=== PATIENT | female | born 1950 | race Caucasian/White ===

== ENCOUNTER → 2019-01-03 | Outpatient (CLI) | payer MEDICARE, OTHER ==
[~2019-01-03] MED LIST: ALPR-429 PO; BRIM5DRO8 OP; BUTA1CAP5 PO; DICL-190 PO; IBUP400T13 PO; LEVO-3 PO; LEVO-315 PO; LEVO88TA43 PO; NAPR220C12 PO; TRAZ50TA34 PO; VENL37.514 PO; ZOLP-350 PO; ZOLP-360 PO
--- NOTE | 2019-01-04 08:28 | RADIOLOGY IMAGING REPORT ---
FACILITY: [facility] PATIENT NAME: SOLE VELÁSQUEZ : [id number] MR: [id number] V: [id number] EXAM DATE: [id number] ORDERING PHYSICIAN: MAYDA PIZARRO TECHNOLOGIST: Kristin Marcial PROCEDURE:BILATERAL DIGITAL SCREENING MAMMOGRAM WITH CAD ASSISTED INTERPRETATION & 3D TOMOSYNTHESIS COMPARISON:Prior mammograms 08/11/17, 07/22/16, 07/15/15, 07/11/14, 06/29/13, 06/24/12. INDICATIONS:screening FINDINGS: The breasts are heterogeneously dense which can obscure small masses. The parenchymal pattern has remained stable allowing for difference in mammographic technique & patient positioning. There is an area of postsurgical scaring in the upper outer quadrant of the Right breast from prior lumpectomy. DIAGNOSTIC CATEGORY 2--BENIGN FINDING. RECOMMENDATIONS: ROUTINE MAMMOGRAM AND CLINICAL EVALUATION. IMPRESSION: BIRADS 2: Benign finding. No significant abnormality is seen. Dictated by: Lisa Peacock M.D. on 01/03/2019 at 16:31 Transcribed by: MICHAEL on 01/04/2019 at 8:19 Approved by: Lisa Peacock M.D. on 01/04/2019 at 8:27 [facility]
== END ==
LOC: MAMO 01:19
PROVIDERS: ATTEND Internal Medicine
DX: Z12.31 Encounter for screening mammogram for malignant neoplasm of breast (principal)
CPT/HCPCS: 77063; 77067

== ENCOUNTER → 2019-03-15 | Outpatient (CLI) | payer MEDICARE, OTHER ==
[~2019-03-15] MED LIST changes: +LEVO88TA45 PO; +MIRT-22 PO; +PNEU0.5D3 IM; -TRAZ50TA34 PO; +TRAZ50TA52 PO
--- NOTE | 2019-03-15 14:52 | RADIOLOGY IMAGING REPORT ---
FACILITY: [facility] PATIENT NAME: Payam Dyson : 1950 MR: [id number] V: [id number] EXAM DATE: ORDERING PHYSICIAN: SIVAKUMAR SANDERSON TECHNOLOGIST: Location: [facility] Patient: Payam Dyson : 1950 Visit/Account:[id number] Date of Sevice: 03/15/2019 DEXA Scan Clinical history: Asymptomatic postmenopausal state. Comparison: DEXA scan from to 617. LUMBAR SPINE: The bone mineral density (BMD) measured from L1-L4 correlates with a Z-score of 0.7 and a T-score of -1.1 which is osteopenia as defined by the World Health Organization. The corresponding risk of frac ture in the lumbar spine is 2-3 times increased compared with a young adult reference population. Th is value has decrease by 5.1 % since the prior study. More than 5% change is considered significant. HIP: Bone mineral density (BMD) measured in the LEFT total hip region correlates with a Z-score -0.8 and a T-score of -2.2 which is osteopenia as defined by the World Health Organization. The corresponding risk of fracture in the hip is 4-6 times increased compared to a young adult reference population. Th is value has increase by 2.1 % since the prior study. More than 5% change is considered significant. T score left femoral neck -2.3 Bone mineral density (BMD) measured in the Femoral Neck region measures 0.717 g/cm?. IMPRESSION: 1. Lumbar spine: Osteopenia. There has been 5.1% decrease in the bone mineral density since the pre vious exam. 2. Left Total Hip: Osteopenia. There has been 2.1% increase in the bone mineral density since the p revious exam. 3. Femoral Neck: Bone Mineral Density is 0.717 g/cm? The next DEXA scan of this patient should include the following sites: L1-L4 and the left hip. FRAX? WHO Fracture Risk Assessment Tool link: <http://www.shef.ac.uk/FRAX/tool.jsp?locationValue=9> PLEASE NOTE: 1) The World Health Organization defines low BMD as follows: T-score Normal > -1 Osteopenia < -1 and > -2.5 Osteoporosis < -2.5 without fractures Established osteoporosis < -2.5 with fractures 2) In general, you may wish to consider: Diagnosis Treatment Follow-up DEXA Normal BMD Prevention 2-3 years Osteopenia Prevention/therapy 1-2 years Osteoporosis Therapy Yearly 3) Fracture risk estimated from the T-score is more accurate for vertebral fractures (often spontane ous) than for hip fractures. Report Dictated By: Lisa Peacock MD at 03/15/2019 2:44 PM Report E-Signed By: Lisa Peacock MD at 03/15/2019 2:45 PM WSN:[email or web address]
== END ==
LOC: RAD 00:09
PROVIDERS: ATTEND Nurse Practitioner Family
DX: M85.89 Other specified disorders of bone density and structure, multiple sites (principal)
CPT/HCPCS: 77080